=== PATIENT | male | born 1995 | race Caucasian/White ===

== ENCOUNTER 2018-03-30 10:47 | Emergency (ER) | payer BC ==
[~2018-03-30] VITALS: Ht 167.6 cm; Wt 71.1 kg
[~2018-03-30 10:47] MED LIST: IBUPROFEN 400400 M1 PO; NOHOMEMEDICATIONS
[2018-03-30 11:01] LABS: ABSOLUTE LYMPHOCYTES 1.8 thou/uL (0.8-5.3); ABSOLUTE MONOCYTES 0.3 thou/uL (0.0-1.2); ABSOLUTE NEUTROPHILS 1.9 thou/uL (1.6-8.1); BASOPHILS 0.8 %; EOSINOPHILS 1.1 %; HEMATOCRIT 45.8 % (42.0-52.0); HEMOGLOBIN 15.6 gm/dL (14.0-18.0); LYMPHOCYTES 43.1 %; MCH 29.8 pg (26.0-34.0); MCV 87.6 fL (80.0-100.0); MONOCYTES 7.8 %; MPV 7.3 fl. (7.2-11.1); NUCLEATED RBCS 0 /100WBC; PLATELET COUNT* 235 thou/uL (150-400); POLYS 47.2 %; RBC 5.23 mil/uL (4.50-6.00); RDW-CV 13.7 % (10.5-14.5); WBC 4.1 thou/uL (4.0-11.0)
[2018-03-30 11:08] LABS: CALCIUM 9.2 mg/dL (8.5-10.1); CREATININE 1.1 mg/dL (0.6-1.3); POTASSIUM 4.6 mmol/L (3.5-5.1)
[2018-03-30 11:09] LABS: APTT 30.5 Seconds (25.0-31.3); INR 1.1; PROTIME 10.9 Seconds (9.20-11.50)
[2018-03-30 11:13] LABS: ALBUMIN 4.3 g/dL (3.4-5.0); TOTAL BILIRUBIN 0.6 mg/dL (<0.1-1.0); TOTAL PROTEIN 7.6 g/dL (6.4-8.2)
[2018-03-30 11:55] LABS: URINE BILIRUBIN NEGATIVE (Negative); URINE BLOOD NEGATIVE (Negative); URINE CLARITY CLEAR; URINE COLOR YELLOW; URINE GLUCOSE-RANDOM NEGATIVE (Negative); URINE KETONES NEGATIVE (Negative); URINE LEUKOCYTES-REFLEX NEGATIVE (Negative); URINE NITRITE-REFLEX NEGATIVE (Negative); URINE PROTEIN NEGATIVE (Negative); URINE SPECIFIC GRAVITY <= 1.005 (1.005-1.030); URINE UROBILINOGEN 0.2 E.U./dl (0.2-1.0)
[2018-03-30 12:02] LABS: AMP/METHAMP Negative (Negative); BARBITURATES Negative (Negative); BENZODIAZEPINES Negative (Negative); COCAINE Negative (Negative); METHADONE Negative (Negative); OPIATES Negative (Negative); PCP Negative (Negative); THC Negative (Negative)
--- NOTE | 2018-03-30 15:33 | EKG ---
[place] [address] ELECTROCARDIOGRAM REPORT Name: LUCAS DELACRUZ Room: [facility]#: [id number] Admission: 03/30/18 Attend Phys: Discharge: Date of : [birth year] Report #: [id number] THIS REPORT FOR: //name// [facility] ED Test Date: 2018-03-30 Test Time: 10:49:32 Pat Name: LUCAS DELACRUZ Department: Room: Gender: Organizational Effectiveness Consultant: Daisy RANKIN : 1995 Requested By: Stephania Montano Order Number: [id number] MD: Nakul Rodarte Measurements Intervals Trail Rate: 51 P: MO: QRS: 92 QRSD: 96 T: 49 QT: 403 QTc: 372 Interpretive Statements Sinus bradycardia Borderline right axis deviation No previous ECG available for comparison Electronically Signed On 03-30-2018 15:33:39 CDT by Nakul Rodarte [email or web address] <ELECTRONICALLY SIGNED> By: Nakul Rodarte MD, [facility] 03/30/18 1533 1049 1049 Nakul Rodarte MD, FACC /EPI
[2018-03-30 16:11] VITALS: BP 115/60
--- NOTE | 2018-03-31 09:12 | EEG ---
[address] [address] EEG STUDY REPORT Name: LUCAS DELACRUZ Room: [facility]#: [id number] Admission: 03/30/18 Attend Phys: Discharge: 03/30/18 Date of : [birth year] Report #: [id number] THIS REPORT FOR: //name// CC: [facility] physician/PCP Stephania Montano DATE OF SERVICE: 03/30/2018 This patient is being evaluated for altered mental status and a question of seizure. This patient's EEG was done by placing the electrodes by 10-20 system of electrode placement. Both referential and sequential montages were used for recording. The background activity in this patient's EEG is about 10-11 Hz and 40 microvolt. This is a symmetrical activity. The patient went to sleep that is associated with bilateral slowing, vertex sharp waves and sleep spindles. Photic stimulation was unremarkable. Throughout the record, no active epileptiform activity was noticed. IMPRESSION: This patient's EEG is within normal limits. It might be mentioned that EEG can be normal in a patient with seizure disorder. Thank you very much for this referral. <ELECTRONICALLY SIGNED> By: Alejandro Sarabia MD 03/31/18 0912 1659 [id number] Sarabia MD /nt
== END 2018-03-30 16:13 | disposition home or self-care (01) ==
LOC: M.ERS 10:47
PROVIDERS: Personal Emergency Response Attendant
DX: R41.0 Disorientation, unspecified (principal); R20.2 Paresthesia of skin